=== PATIENT | female | born 1950 | race Caucasian/White ===

== ENCOUNTER → 2016-04-12 | Day surgery (SDC) | payer BC ==
--- NOTE | 2016-04-09 03:38 | HP ---
PREOPERATIVE HISTORY AND PHYSICAL: DATE OF SURGERY/ADMISSION: 04/12/16 [facility] DATE OF OFFICE VISIT/ENCOUNTER: 04/08/16 ATTENDING SURGEON: Jumana Parada MD PROCEDURE: Right ring and middle finger trigger releases. CHIEF COMPLAINT: Right ring and middle finger trigger releases. HISTORY OF PRESENT ILLNESS: This is a 65-year-old female who has had ongoing problems with triggering in her right and middle fingers for over 2 years now. She has received a couple of cortisone injections in both fingers that, which did provide her with relief. However, she is to the point, where she is frustrated enough that she would like more definitive treatment in the form of surgery. She has consented to proceed with right ring and middle finger trigger releases. PAST MEDICAL HISTORY: 1. History of thyroid cancer. 2. History of asthma. PAST SURGICAL HISTORY: 1. Thyroidectomy in 1998. 2. Open heart surgery with aortic valve replacement. 3. Tonsillectomy. 4. Hysterectomy. 5. Right shoulder rotator cuff repair. 6. Bilateral carpal tunnel releases. 7. Oophorectomy. 8. Appendectomy. MEDICATIONS: 1. Aspirin 81 mg daily. 2. Cytomel 25 mcg one-half daily. 3. Synthroid 200 mcg daily. ALLERGIES: CODEINE, DEMEROL, AND PERCOCET CAUSE HEADACHE, NAUSEA, AND VOMITING. FAMILY MEDICAL HISTORY: Significant for Parkinson's and alcohol abuse. SOCIAL HISTORY: The patient is retired. She denies tobacco use, recreational drug use, or alcohol use. REVIEW OF SYSTEMS: General: Negative for fevers, chills, or night sweats. No known anesthesia problems. HEENT: Negative for headache, lightheadedness, or syncopal episodes. Integumentary: Negative for abrasions, lesions, or open wounds. Cardiothoracic: Negative for chest pain, palpitations, or edema. Negative for hypertension. Pulmonary: Positive for history of asthma. Negative for shortness of breath with exertion, chronic cough, or COPD. GI: Negative for nausea, vomiting, diarrhea, constipation, or GERD. : Negative for nocturia, urinary frequency, urgency, history of UTIs, or kidney problems. Musculoskeletal: Positive for current complaints. Negative for chronic or intermittent back pain or history of fractures. Neurological: Negative for paresthesias, numbness, history of seizure, stroke, or epilepsy. Endocrine: Positive for history of thyroid cancer. Negative for diabetes. Hematologic: Negative for easy bruising, anemia, excessive bleeding, or history of DVT. Infectious Disease: Negative for history of MRSA, hepatitis C, or HIV. PHYSICAL EXAMINATION GENERAL: A well-developed, well-nourished 65-year-old female, in no acute distress. VITAL SIGNS: Height 5 feet 5 inches, weight 187 pounds, pulse rate 64, and blood pressure 119/84. HEENT: Normocephalic atraumatic. Pupils were equal, round and reactive to light and accommodation. Extraocular movements are intact. NECK: Supple. No palpable lymph nodes. Throat is clear. PULMONARY: Lungs are clear to auscultation bilaterally. No wheezes, rales, or rhonchi. CARDIOTHORACIC: Regular rate and rhythm. S1 and S2. No murmurs, rubs, or gallops. No edema. ABDOMEN: Positive bowel sounds, soft, and nontender. MUSCULOSKELETAL: On exam of her right hand, there is tenderness to palpation at the A1 lauren of both the middle finger and ring finger. She can make a full fist, but has catching of the fingers when she moves to full range of motion. She has full extension. Skin is intact. Neurovascular function is intact. NEUROLOGICAL: Alert and oriented x3. Cranial nerves II through XII are intact. Sensation is intact to light touch. IMPRESSION: Right ring and middle finger trigger fingers. PLAN/RECOMMENDATIONS: The patient is scheduled to undergo right ring and middle finger trigger releases with Dr. Parada on 04/12/16. She will return to the office in 10 to 14 days postoperative for followup and suture removal. A prescription for Ultracet was e-scribed to the patient's pharmacy for postoperative pain management. ERNIE SAVAGE [id number]/[facility] #: [id number] FAYE
[~2016-04-12] MED LIST: Buffered Lidocaine 1% SYR 3ML* 3 ML/SYR SYRINGE INTRADERM ONE; Buffered Lidocaine 1% SYR 3ML* 3 ML/SYR SYRINGE ONE; Lidocaine 1% INJ* 10 MG/ML 30 ML SDV ONE; Midazolam* 1 MG/ML 2 ML VIAL (2 MG) ONE; fentaNYL* 50 MCG/ML 2 ML VIAL (100 MCG VIAL) ONE
[2016-04-12 11:29] VITALS: BP 121/80
--- NOTE | 2016-04-14 06:41 | OP ---
DATE OF OPERATION: 04/12/16 - [facility] DATE OF : 54 SURGEON: Jumana Parada MD. FREIGHT TALLIER: ERNIE Farrar. ANESTHESIOLOGIST: Alexis Phillips DO ANESTHESIA: Local MAC. PRE-OP DIAGNOSIS: Right long and ring finger trigger finger. POST-OP DIAGNOSIS: Right long and ring finger trigger finger. PROCEDURE: Right long and ring finger trigger release. ESTIMATED BLOOD LOSS: Zero. TOURNIQUET TIME: About 10 minutes. INDICATIONS FOR PROCEDURE: Lena is a 65-year-old female with painful locking of her right long and ring finger. She presents for release after failing conservative treatment. DESCRIPTION OF PROCEDURE: The patient was brought to the operating room, was given a sedation anesthetic and a local infiltration of 10 cc of 1% plain lidocaine on the palm of the right hand. Skin of the right hand and forearm was prepped and draped in the usual sterile fashion. The hand and forearm were exsanguinated and the tourniquet elevated to 250 mmHg. A transverse incision was made centered over the A1 pulleys of the long and ring fingers of the right hand. We dissected bluntly through the subcutaneous tissue. The digital neurovascular bundles were retracted and both pulleys were incised longitudinally completely releasing the tendons, which were in good condition. The wound is irrigated and skin edges were reapproximated with 4-0 nylon suture. The wound was dressed with Xeroform, 4x4, Webril, and an Ravindra wrap. The patient tolerated the procedure well and was brought to the recovery room in good condition. [id number]/[facility] #: [id number] MTDD
== END | disposition home or self-care (01) ==
LOC: OREAST 08:31
PROVIDERS: ATTEND Orthopaedic Surgery
DX: M65.331 Trigger finger, right middle finger (principal); M65.341 Trigger finger, right ring finger; J45.909 Unspecified asthma, uncomplicated; E03.9 Hypothyroidism, unspecified
CPT/HCPCS: J2250; J3010

== ENCOUNTER 2018-07-06 07:57 | Emergency (ER) | payer BC, MEDICARE ==
--- NOTE | 2018-07-06 08:22 | ED ---
Head Injury - HPI Summary HPI Summary: Pt is a 67 y/o female who presents to the ED s/p head injury. At 22:00 last night she slipped and fell, injuring her posterior head and left shoulder. She now c/o headache and left shoulder pain. Pt denies any LOC or N/V. Pain is rated a 6/10 in severity, and is made worse with movement. She had a subdural hematoma s/p fall in January 2018. Pt is on ASA. - History Of Current Complaint Chief Complaint: EDHeadInjury Stated Complaint: "CRACKED MY SHOULDER" PER PT Time Seen by Provider: 07/06/18 08:13 Hx Obtained From: Patient Mechanism Of Injury: Fall From A Standing Position Onset/Duration: Started Days Ago - 1, Still Present Severity Currently: Moderate Pain Intensity: 6 Pain Scale Used: 0-10 Numeric Location of Head Injury: Other: - posterior Aggravating Factor(s): Movement Associated Signs And Symptoms: Headache Related History: Similar Episode/Dx as - hx subdural hematoma Anticoagulant Therapy: ASA - Allergies/Home Medications Allergies/Adverse Reactions: Allergies Allergy/AdvReac Type Severity Reaction Status Date / Time codeine Allergy Vomiting Verified 07/06/18 08:16 venom-honey bee Allergy Swelling Verified 07/06/18 08:16 Of Face,Lips,& Throat Home Medications: Home Medications EPINEPHrine [Epinephrine] 0.3 mg IM SEE INSTRUCTIONS PRN 07/06/18 [History Confirmed 07/06/18] Metoprolol Succinate XL TAB* [Toprol XL TAB*] 25 mg PO DAILY 07/06/18 [History Confirmed 07/06/18] buPROPion HCl [Bupropion HCl Sr] 150 mg PO BID 07/06/18 [History Confirmed 07/06] PMH/Surg Hx/FS Hx/Imm Hx Endocrine/Hematology History: Reports: Hx Thyroid Disease - papillary carcinoma 1998 Denies: Hx Diabetes, Hx Systemic Lupus Erythematosus Cardiovascular History: Reports: Hx Valvular Heart Disease - bovine aortic valve replacement, Other Cardiovascular Problems/Disorders - HX THORACIC AORTIC ANEURYSM, HYPERLIPIDEMIA Denies: Hx Congestive Heart Failure, Hx Coronary Artery Disease, Hx Hypertension, Hx Pacemaker/ICD Respiratory History: Reports: Hx Asthma - USES INHALER PRN History: Denies: Hx Dialysis, Hx Renal Disease Musculoskeletal History: Reports: Other Musculoskeletal History - RIGHT HAND TRIGGER FINGERS- LONG AND RING FINGERS Denies: Hx Arthritis, Hx Rheumatoid Arthritis, Hx Osteoporosis Sensory History: Denies: Hx Contacts or Glasses, Hx Hearing Aid Opthamlomology History: Denies: Hx Contacts or Glasses Neurological History: Reports: Other Neuro Impairments/Disorders - L foot nerve damage, subdural hematoma Psychiatric History: Denies: Hx Depression, Hx Panic Disorder - Cancer History Cancer Type, Location and Year: thyroid. papillary Hx Chemotherapy: No Hx Radiation Therapy: No - Surgical History Surgery Procedure, Year, and Place: open heart surgery with bovine valve (cow valve)09/08, [facility]. [place]roidectomy [place] [facility] [place]. bilateral carpal tunnel 20 YRS AGO. rt shoulder repair 17 YRS AGO. hysterectomy YRS AGO. TONSILLECTOMY A TEEN TC. APPENDECTOMY 22 YRS OLD TC Hx Anesthesia Reactions: No Infectious Disease History: No Infectious Disease History: Denies: Traveled Outside the [place] in Last 30 Days - Family History Known Family History: Positive: Other - Parkinson's, alcoholism - Social History Alcohol Use: None Hx Substance Use: No Substance Use Type: Reports: None Hx Tobacco Use: No Smoking Status (MU): Never Smoked Tobacco Have You Smoked in the Last Year: No Review of Systems Negative: Vomiting, Nausea Positive: Arthralgia - L shoulder Neurological: Other - NEGATIVE: LOC Positive: Headache All Other Systems Reviewed And Are Negative: Yes Physical Exam - Summary Physical Exam Summary: GENERAL: Patient is a well-developed and nourished F who is lying comfortable in the stretcher. Patient is not in any acute respiratory distress. HEAD AND FACE: Normocephalic EYES: PERRLA, EOMI x 2. EARS: Hearing grossly intact. MOUTH: Oropharynx within normal limits. NECK: Supple, trachea is midline, no adenopathy, no JVD, no carotid bruit. CHEST: Symmetric, no tenderness at palpation LUNGS: Clear to auscultation bilaterally. No wheezing or crackles. CVS: Regular rate and rhythm, S1 and S2 present, no murmurs or gallops appreciated. ABDOMEN: Soft, non-tender. Bowel sounds are normal. No abnormal abdominal pulsations. EXTREMITIES: Full ROM in all major joints, no edema, no cyanosis or clubbing. Tenderness to palpation of left shoulder. NEURO: Alert and oriented x 3. No acute neurological deficits. Speech is normal and follows commands. SKIN: Dry and warm Triage Information Reviewed: Yes Vital Signs On Initial Exam: Initial Vitals Temp Pulse Resp BP Pulse Ox 97.1 F 73 16 157/98 98 07/06/18 08:03 07/06/18 08:03 07/06/18 08:03 07/06/18 08:03 07/06/18 08:03 Vital Signs Reviewed: Yes - [place] Coma Scale Best Eye Response: 4 - Spontaneous Best Motor Response: 6 - Obeys Commands Best Verbal Response: 5 - Oriented Coma Scale Total: 15 Diagnostics - Vital Signs Vital Signs Temp Pulse Resp BP Pulse Ox 07/06/18 08:03 97.1 F 73 16 157/98 98 - Laboratory Lab Statement: Any lab studies that have been ordered have been reviewed, and results considered in the medical decision making process. - Radiology Shoulder XR Radiology Interpretation Completed By: Radiologist Summary of Radiographic Findings: NO ACUTE OSSEOUS INJURY. IF SYMPTOMS PERSIST, RECOMMEND REPEAT IMAGING. ED physician reviewed radiology report. - CT Brain CT CT Interpretation Completed By: Radiologist Summary of CT Findings: NO ACUTE INTRACRANIAL PATHOLOGY. ED physician reviewed radiology report. Head Injury Course/Dx Course Of Treatment: Pt is a 67 y/o female who presents to the ED c/o headache and left shoulder pain s/p head injury. She had a subdural hematoma s/p fall in January 2018. Pt is on ASA. A physical exam revealed tenderness to palpation of left shoulder. GCS of 15. A shoulder XR and brain CT were negative. Final dx of fall and shoulder injury. I discussed results with patient, and she reports feeling better. She is hemodynamically stable and safe for discharge. Strict return precautions given and she will otherwise follow up with her PCP. - Diagnoses Provider Diagnoses: Fall, Shoulder injury Discharge - Sign-Out/Discharge Documenting (check all that apply): Patient Departure - Discharge Patient Received Moderate/Deep Sedation with Procedure: No - Discharge Plan Condition: Good Disposition: HOME Patient Education Materials: Fall Prevention (ED), Shoulder Pain (ED) Referrals: Chelita Roger NP [Primary Care Provider] - (1-3 days) Additional Instructions: RETURN TO THE EMERGENCY DEPARTMENT FOR CHANGING OR WORSENING SYMPTOMS. - Billing Disposition and Condition Condition: GOOD Disposition: Home - Attestation Statements Document Initiated by Scribe: Yes Documenting Scribe: Renetta Mcclure Provider For Whom Scribe is Documenting (Include Credential): Elena Mcghee MD Scribe Attestation: Renetta Avelar scribed for Elena Mcghee MD on 07/07/18 at 0720. Scribe Documentation Reviewed: Yes Provider Attestation: The documentation as recorded by the scribeRenetta accurately reflects the service I personally performed and the decisions made by me, Elena Mcghee MD Status of Scribe Document: Viewed
[2018-07-06 10:29] VITALS: BP 129/87
== END 2018-07-06 10:54 | disposition home or self-care (01) ==
LOC: ED 07:57
DX: S49.92XA Unspecified injury of left shoulder and upper arm, initial encounter (principal); W01.0XXA Fall on same level from slipping, tripping and stumbling without subsequent striking against object, initial encounter; E07.9 Disorder of thyroid, unspecified; I38 Endocarditis, valve unspecified; E78.5 Hyperlipidemia, unspecified; J45.909 Unspecified asthma, uncomplicated; Z88.5 Allergy status to narcotic agent; Z79.899 Other long term (current) drug therapy; Z85.850 Personal history of malignant neoplasm of thyroid; Z95.3 Presence of xenogenic heart valve; Z79.51 Long term (current) use of inhaled steroids
CPT/HCPCS: 70450; 99282